=== PATIENT | female | born 1985 ===

== ENCOUNTER 2020-08-06 21:53 | Emergency (ER) | payer MEDICAID ==
[~2020-08-06] VITALS: Ht 167.6 cm; Wt 125.3 kg
--- NOTE | 2020-08-06 22:46 | NUR ---
Lab at bedside for blood draw.
[2020-08-06 22:58] LABS: BASOPHILS % (AUTO) 1 % (0-1); EOSINOPHILS % (AUTO) 4 % (1-7); LYMPHOCYTES % (AUTO) 28 % (22-44); MEAN CORPUSCULAR HEMOGLOBIN 31.2 pg (27.0-34.8); MEAN CORPUSCULAR HGB CONC 33.6 g/dL (32.4-35.8); MEAN PLATELET VOLUME 9.2 fL (7.4-10.4); MONOCYTES % (AUTO) 6 % (2-9); NEUTROPHILS % (AUTO) 62 % (42-75); PLATELET COUNT 316 x10^3/uL (130-400); RED CELL DISTRIBUTION WIDTH 14.1 % (9.6-15.2)
[2020-08-06 23:03] LABS: MD NO
--- NOTE | 2020-08-06 23:03 | NUR ---
US at bedside for study.
[2020-08-06 23:07] LABS: ANION GAP 5 mmol/L (5-15); CALCIUM 9.1 mg/dL (8.5-10.1); CHLORIDE 110 mmol/L (98-107); CREATININE 0.66 mg/dL (0.55-1.02)
[2020-08-06 23:21] LABS: MICROSCOPIC AUTO
[2020-08-07 00:24] VITALS: BP 140/64
== END 2020-08-07 01:11 ==
LOC: ED 23:00
DX: R31.29 Other microscopic hematuria (principal); J02.8 Acute pharyngitis due to other specified organisms; Z20.828 Contact with and (suspected) exposure to other viral communicable diseases; B97.89 Other viral agents as the cause of diseases classified elsewhere; F17.290 Nicotine dependence, other tobacco product, uncomplicated
CPT/HCPCS: 36415; 76770; 80048; 81001; 85025; 87635; 99284; 99406